=== PATIENT | female | born 1975 | race Hispanic/Latino ===

== ENCOUNTER → 2016-10-17 | Outpatient (CLI) | payer OTHER ==
--- NOTE | 2016-10-17 15:01 | Diagnostic Imaging Report ---
PROCEDURE: US Thyroid. TECHNIQUE: Multiple real-time grayscale images were obtained of the thyroid in various projections. INDICATION: Thyroid enlargement. FINDINGS: The right thyroid lobe measures 4.7 x 2.1 x 1.9 cm. The left lobe is 4.5 x 1.6 x 1.5 cm. There is solid nodule with internal vascularity seen in the inferior aspect of the right lobe measuring 1.2 x 0.8 x 1 cm. The rest of the thyroid parenchyma is heterogenous with no discrete nodule. IMPRESSION: Heterogenous thyroid gland with 1.2 cm nodule in the inferior aspect of the right lobe. This could be related to multinodular goiter with numerous background tiny nodules or thyroiditis resulting in the heterogeneity of the parenchyma. Correlate clinically. Dictated by: Dictated on workstation # [id number]
== END ==
LOC: RAD 10:13
PROVIDERS: ATTEND Nurse Practitioner Family
DX: E04.1 Nontoxic single thyroid nodule (principal)
CPT/HCPCS: 76536

== ENCOUNTER → 2016-10-29 | Outpatient (CLI) | payer OTHER | LOC: CARD 10:09 | PROVIDERS: ATTEND Nurse Practitioner Family | DX: E04.1 Nontoxic single thyroid nodule (principal) ==

== ENCOUNTER → 2016-12-05 | Outpatient (CLI) | payer OTHER ==
--- NOTE | 2016-12-06 10:57 | Diagnostic Imaging Report ---
Thyroid scan and uptake Technique: After the oral administration of 208 ?Ci of I-123 capsule, 4 hour and 24-hour uptake is measured and plantar images over the thyroid gland obtained. Indication: There are nodule is FINDINGS: Thyroid uptake at 4 hours is 28.5 %, and the at 24 hours is 52 %. Planar images demonstrate no slight heterogeneity in the uptake within the upper poles particularly with no discrete cold or hot nodule. IMPRESSION: Hyperthyroidism. Dictated by: Dictated on workstation # [id number]
== END ==
LOC: CARD 10:13
PROVIDERS: ATTEND Nurse Practitioner Family
DX: E04.1 Nontoxic single thyroid nodule (principal)
CPT/HCPCS: 78014

== ENCOUNTER → 2017-05-05 | Outpatient (CLI) | payer OTHER ==
--- NOTE | 2017-05-06 08:23 | Diagnostic Imaging Report ---
PROCEDURE: US Thyroid. TECHNIQUE: Multiple real-time grayscale images were obtained of the thyroid in various projections. INDICATION: Solitary thyroid nodule. COMPARISON: 10/17/2016. FINDINGS: The right thyroid lobe is 4.4 x 2.1 x 1.7 cm. The left lobe is 4.7 x 1.5 x 1.8 cm. There is a solid nodule in the right thyroid lobe near the isthmus with isoechoic to slightly hyperechogenic center and a well defined margin is seen. It measures 1.2 x 0.6 x 1.1 cm. This is similar to the previous exam with no significant change. The background thyroid parenchyma is heterogenous with no other discrete lesions. IMPRESSION: Stable 1.2 cm right thyroid lobe nodule near the isthmus. Stable heterogenous background thyroid parenchyma. Dictated by: Dictated on workstation # [id number]
== END ==
LOC: RAD 09:59
PROVIDERS: ATTEND Nurse Practitioner Family
DX: E04.1 Nontoxic single thyroid nodule (principal)
CPT/HCPCS: 76536

== ENCOUNTER → 2017-07-30 | Outpatient (CLI) | payer OTHER ==
--- NOTE | 2017-07-30 19:46 | Diagnostic Imaging Report ---
Bilateral screening mammogram 2D views with tomosynthesis The current study was also evaluated with a Computer Aided Detection (CAD) system. INDICATION: Screening. No current complaints stated on the questionnaire. COMPARISON: 06/27/2016. FINDINGS: The breasts are composed of heterogeneously dense parenchyma which may decrease mammographic sensitivity. No mass, architectural distortion, or suspicious cluster of calcifications. Allowing for technique and positional differences, no suspicious change is seen. IMPRESSION: Dense breasts with no definite change. ACR BI-RADS Category 2: Benign findings. Result letter will be mailed to the patient. Note: At least 10% of breast cancer is not imaged by mammography. Dictated by: Dictated on workstation # [id number]
== END ==
LOC: RAD 09:26
PROVIDERS: ATTEND Nurse Practitioner Family
DX: Z12.31 Encounter for screening mammogram for malignant neoplasm of breast (principal)
CPT/HCPCS: 77067

== ENCOUNTER → 2018-01-12 | Outpatient (CLI) | payer OTHER ==
--- NOTE | 2018-01-12 11:43 | Diagnostic Imaging Report ---
PROCEDURE: US Thyroid. TECHNIQUE: Multiple real-time grayscale images were obtained of the thyroid in various projections. INDICATION: Thyroid nodule. The study is performed for followup. COMPARISON: Correlation is made with prior thyroid ultrasound from 05/05/2017 and 10/17/2016. FINDINGS: The right lobe of the thyroid measures 5.0 x 1.7 x 1.8 cm and the left lobe measures 4.0 x 1.5 x 1.4 cm. Both lobes are heterogeneous in echotexture. The nodule noted along the medial aspect of the right lobe inferiorly is stable at 10 mm x 7 mm x 12 mm compared with 11 mm x 6 mm x 12 mm on prior. There is a second region of heterogeneity noted in the inferior right lobe of the thyroid measuring approximately 2.0 x 1.3 x 0.7 cm. This also is unchanged when compared with prior thyroid ultrasound. It is uncertain if this is actual thyroid nodule versus heterogeneous thyroid tissue. No discrete mass in the left lobe is identified. IMPRESSION: Overall stable thyroid ultrasound when compared with prior examination from 05/05/2017 and 10/17/2016. Stability over the last 15 months is reassuring. Continued followup with repeat thyroid ultrasound in 6 months is recommended to show continued stability. Dictated by: Dictated on workstation # [id number]
== END ==
LOC: RAD 10:09
PROVIDERS: ATTEND Internal Medicine Endocrinology, Diabetes & Metabolism
DX: E04.1 Nontoxic single thyroid nodule (principal); E03.9 Hypothyroidism, unspecified
CPT/HCPCS: 76536

== ENCOUNTER → 2018-06-12 | Outpatient (CLI) | payer OTHER ==
[~2018-06-12] VITALS: Ht 154.9 cm; Wt 54.9 kg
[~2018-06-12] MED LIST: ACHD5005 PO; LEVO50TA6 PO; LIDOCAINE 1% INJ 20 ML 20 ML VIAL INJ ONE; MECL-133 PO
[2018-06-12 10:35] VITALS: BP 101/59
[2018-06-12 11:05] VITALS: BP 112/60
--- NOTE | 2018-06-12 11:45 | Diagnostic Imaging Report ---
INDICATION: Right lobe thyroid nodule. Patient presents for ultrasound guided fine needle aspiration. PROCEDURE: Patient was brought to the procedure room and placed on the table in the supine position. Ultrasound imaging over the right neck was performed to evaluate appropriate entry site. The right neck was then prepped and draped in usual sterile fashion. A small amount of 1% lidocaine utilized for local anesthesia. A total of three passes were made into the circumscribed hyperechoic nodule in the right lobe of the thyroid utilizing 25-gauge needles. Fine-needle aspiration technique was utilized. Hemostasis was obtained using manual compression. Patient tolerated the procedure well. IMPRESSION: Successful ultrasound guided fine needle aspiration of the hyperechoic nodule right lobe of the thyroid. Pathology results are currently pending. Dictated by: Dictated on workstation # [id number]
== END ==
LOC: RAD 10:11
PROVIDERS: ATTEND Surgery
DX: E04.1 Nontoxic single thyroid nodule (principal)
CPT/HCPCS: 76942

== ENCOUNTER 2018-06-22 05:37 | Outpatient (CLI) | payer OTHER ==
[~2018-06-22] VITALS: Ht 147.3 cm; Wt 55.3 kg
[2018-06-22] MEDS ORDERED: MECL-133 PO (11:38)
[2018-06-22] MEDS ORDERED: LEVO50TA6 PO (12:34)
== END 2018-06-22 12:37 | disposition home or self-care (01) ==
LOC: PREOP 05:37
PROVIDERS: ATTEND Surgery
DX: Z01.818 Encounter for other preprocedural examination (principal)

== ENCOUNTER 2018-06-24 05:58 | Day surgery (SDC) | payer OTHER ==
[~2018-06-24] VITALS: Ht 147.3 cm; Wt 55.3 kg
[~2018-06-24 05:58] MED LIST changes: -ACHD5005 PO; -LIDOCAINE 1% INJ 20 ML 20 ML VIAL INJ ONE
[2018-06-24 06:25] VITALS: BP 97/69
[2018-06-24 06:35] LABS: BASOPHILS % (AUTO) 0 % (0-10); EOSINOPHILS # (AUTO) 0.2 10^3/uL (0.0-0.3); EOSINOPHILS % (AUTO) 3 % (0-10); HEMATOCRIT 37 % (35-52); LYMPHOCYTES # (AUTO) 1.3 X 10^3 (1.0-4.0); LYMPHOCYTES % (AUTO) 21 % (12-44); MEAN CORPUSCULAR HEMOGLOBIN 25 PG (25-34); MEAN CORPUSCULAR HGB CONC 33 G/DL (32-36); MEAN CORPUSCULAR VOLUME 75 FL (80-99); MEAN PLATELET VOLUME 9.4 FL (7.4-10.4); MONOCYTES # (AUTO) 0.6 X 10^3 (0.0-1.0); MONOCYTES % (AUTO) 10 % (0-12); NEUTROPHILS # (AUTO) 4.2 X 10^3 (1.8-7.8); NEUTROPHILS % (AUTO) 66 % (42-75); PLATELET COUNT 261 10^3/uL (130-400); RED CELL DISTRIBUTION WIDTH 15.9 % (10.0-14.5); WHITE BLOOD COUNT 6.3 10^3/uL (4.3-11.0)
[2018-06-24] MEDS ORDERED: ceFAZolin INJECTION 1,000 MG in NS (IVPB) 50 ML IV ONE (06:45)
[2018-06-24] MEDS ORDERED: ceFAZolin 1,000 MG/10 ML (ANCEF) VIAL ONE (06:47)
[2018-06-24] MEDS ORDERED: NS (IVPB) 50 ML ONE (06:47)
[2018-06-24] MEDS: LACTATED RINGERS 1,000 ML IV PRN ×3 (06:49→09:48)
[2018-06-24 06:52] LABS: BUN/CREATININE RATIO 18; CALCIUM 8.9 MG/DL (8.5-10.1); CARBON DIOXIDE 22 MMOL/L (21-32); CHLORIDE 108 MMOL/L (98-107); CREATININE SERUM 0.71 MG/DL (0.60-1.30); GFR ESTIMATED > 60; GLUCOSE 91 MG/DL (70-105); POTASSIUM 3.8 MMOL/L (3.6-5.0); SODIUM 138 MMOL/L (135-145)
[2018-06-24] MEDS ORDERED: MIDAZOLAM 2 MG/2 ML (VERSED) VIAL ONE (07:06)
[2018-06-24] MEDS ORDERED: fentaNYL INJECTION 100 MCG/2 ML AMP ONE ×2 (07:06→08:36)
[2018-06-24] MEDS ORDERED: proPOfol 200 MG/20 ML (DIPRIVAN) VIAL IV ONE (07:15)
[2018-06-24] MEDS ORDERED: BUP/EPI 0.5% 1:200,000 (SENSORCAINE) 30 ML VIAL ONE (07:15)
[2018-06-24] MEDS ORDERED: SEVOFLURANE (ULTANE) 15 ML INHAL SOLN ONE ×9 (07:15→10:02)
[2018-06-24] MEDS ORDERED: LIDOCAINE PF 2% 2 ML (XYLOCAINE) VIAL ONE (07:15)
[2018-06-24] MEDS ORDERED: THROMBIN SPRAY KIT 5,000 UNIT VIAL ONE ×2 (07:15→07:16)
[2018-06-24] MEDS ORDERED: DEXAMETHASONE 10 MG/ML (DECADRON) 1 ML VIAL ONE (07:15)
[2018-06-24] MEDS ORDERED: ONDANSETRON 4 MG/2 ML (SDV) Z0FRAN ONE (07:15)
--- NOTE | 2018-06-24 07:50 | Progress Note-Pre Operative ---
Pre-Operative Progress Note H&P Reviewed The H&P was reviewed, patient examined and no changes noted. Date Seen by Provider: Jun 18, 2018 Time Seen by Provider: 11:00 Date H&P Reviewed: Jun 24, 2018 Time H&P Reviewed: 07:49 Pre-Operative Diagnosis: Right thyroid nodule LIDIA CLARK MD Jun 24, 2018 07:50
[2018-06-24] MEDS ORDERED: PHENYLEPHRINE 100 MCG/ML 10 ML (ANESTHESIA) SYR ONE (08:49)
[2018-06-24] MEDS ORDERED: PROPOFOL INJECTION 50 ML IV ONE (08:49)
[2018-06-24] MEDS ORDERED: SUCCINYLCHOLINE INJ 100 MG/5 ML SYR ONE (09:31)
--- NOTE | 2018-06-24 10:09 | Operative Report ---
Operative Report Date of Procedure/Surgery Jun 24, 2018 Surgeon (s) LIDIA CLARK MD Networking Administrator (s): N/A Post-Operative Diagnosis Same Procedure Performed Right hemithyroidectomy Intraoperative nerve monitoring Description of Procedure Anesthesia Type: General Estimated blood loss (mL): Minimal Specimen(s) collected/removed Right lobe of thyroid and isthmus Description of the Procedure Indication for the procedure: This lady, with a family history of thyroid carcinoma, presented with a 1.2 cm solid right thyroid nodule. FNA was nondiagnostic. Having discussed the options of repeating the FNA in a few months versus thyroidectomy to establish a definitive histologic diagnosis, she chose the latter option. This appeared to be reasonable, mainly in view of her family history. Informed consent was obtained after reviewing the details of the operation and complications of postoperative hematoma, transient hoarseness of voice and the potential for completion thyroidectomy, should carcinoma be found on permanent histological examination. Description of the procedure: She was placed supine on the operative table and general anesthesia induced. A gram of Ancef was administered intravenously as prophylaxis against wound infection. Sequential compression devices were placed around her legs, to minimize the risk of venous thrombosis. Her neck and upper chest were prepared and draped in the usual sterile manner. Preemptive analgesia was established using 0.5 percent Marcaine with epinephrine. A 3 cm transverse incision was made along the skin crease of the neck and platysma incised transversely. Flaps were raised superiorly to the level of the thyroid cartilage and inferiorly to the sternal notch. Cervical fascia was incised vertically and the strap muscles were retracted laterally. The right lobe of the thyroid came into view and the containing multiple nodules. It was retracted medially, displaying a distinct middle thyroid vein. It was controlled with Harmonic scalpel. The superior thyroid artery was then controlled using 2-0 silk sutures, reinforced with a Ligaclip. Both parathyroid glands were found and preserved, along with their blood supply. Branches of the inferior thyroid artery were controlled using ligaclips and minimal use of Harmonic scalpel. Recurrent laryngeal nerve was found in its conventional position and preserved by constant visual inspection along with intermittent nerve stimulation technique. The main trunk of the nerve bifurcated into 2 branches prior to entry into the larynx. Both proximal and distal stimulation confirmed adequate amplitude of the waveform, confirming the intactness of the nerve. The isthmus was then transected using Harmonic scalpel and the tissue sent for frozen section analysis. The pathologist reported follicular features without any distinct evidence of papillary carcinoma. Therefore, it was felt reasonable to conclude the operation. We had the STEEL LOADER conduct Valsalva maneuver, looking for any venous bleeding. There wasn't any. Gelfoam soaked in thrombin solution was placed along the tracheoesophageal-esophageal groove, to optimize hemostasis. Her neck was then flexed in preparation for closure. Cervical fascia was approximated using 3-0 Vicryl and platysma using the same material. Skin was closed using 4-0 Vicryl, in a subcuticular fashion. She tolerated the procedure well, was extubated in the operating room and taken to the recovery room in a stable condition. Findings of the Procedure see op report Allergies and Home Medications Allergies Coded Allergies: No Known Drug Allergies (Unverified , 06/12/18) Home Medications Levothyroxine Sodium 50 Mcg Tablet, 50 MCG PO DAILY, (Reported) Meclizine HCl 25 Mg Tab.chew, 25 MG PO BID PRN for VERTIGO, (Reported) Patient Home Medication List Home Medication List Reviewed: Yes LIDIA CLARK MD Jun 24, 2018 10:09
[2018-06-24] MEDS ORDERED: ACHD5005 PO (10:12)
--- NOTE | 2018-06-24 10:13 | Discharge Inst-Simple/Standard ---
Discharge Inst-Standard Discharge Medications New, Converted or Re-Newed RX: RX on Chart Patient Instructions/Follow Up Plan of Care/Instructions/FU: Dressings off in a.m. Follow-up in 3 weeks. Activity as Tolerated: Yes Discharge Diet: No Restrictions LIDIA CLARK MD Jun 24, 2018 10:12
[2018-06-24] MEDS ORDERED: ONDANSETRON 4 MG/2 ML (SDV) Z0FRAN IVP PRN ×2 (10:15→10:30)
[2018-06-24] MEDS ORDERED: HYDROcodone/APAP 5 MG/325 MG (LORTAB) TAB PO PRN (10:15)
[2018-06-24] MEDS ORDERED: HYDROmorphone 2 MG/ML VIAL (DILAUDID) IV ONE (10:30)
[2018-06-24] MEDS ORDERED: fentaNYL INJECTION 100 MCG/2 ML AMP IVP ONE (10:30)
[2018-06-24 11:45] VITALS: BP_SYST 107; BP_SYST 115; BP_DIAS 68; BP_DIAS 75
[2018-06-24] MEDS: fentaNYL INJECTION 100 MCG/2 ML AMP IVP PRN ×3 (12:05→22:30)
[2018-06-24] MEDS: LACTATED RINGERS 1,000 ML IV SCH (15:01)
[2018-06-24 15:30] VITALS: BP 109/64
[2018-06-24 19:45] VITALS: BP 119/67
[2018-06-24] MEDS ORDERED: FLU QUADRIvalent (5+ YOA) 2018-2019 (AFLURIA) 0.5 ML IM ONE (20:30)
[2018-06-25] VITALS: BP 113/74
[2018-06-25] MEDS: LACTATED RINGERS 1,000 ML IV SCH (00:50)
[2018-06-25] MEDS: fentaNYL INJECTION 100 MCG/2 ML AMP IVP PRN (03:09)
[2018-06-25 03:55] VITALS: BP 104/53
[2018-06-25] MEDS ORDERED: LEVOTHYROXINE 100 MCG (LEVOTHROID) TAB PO NR (06:00)
[2018-06-25 06:35] LABS: BUN/CREATININE RATIO 13; CALCIUM 8.6 MG/DL (8.5-10.1); CARBON DIOXIDE 24 MMOL/L (21-32); CHLORIDE 108 MMOL/L (98-107); CREATININE SERUM 0.67 MG/DL (0.60-1.30); GFR ESTIMATED > 60; GLUCOSE 97 MG/DL (70-105); POTASSIUM 3.6 MMOL/L (3.6-5.0); SODIUM 140 MMOL/L (135-145)
--- NOTE | 2018-06-25 06:59 | Anesthesia-General Post-Op ---
General Patient Condition Mental Status/LOC: Same as Preop Cardiovascular: Satisfactory Nausea/Vomiting: Absent Respiratory: Satisfactory Pain: Controlled Complications: Absent Post Op Complications Complications None Follow Up Care/Instructions Patient Instructions None needed. Anesthesia/Patient Condition Patient Condition Patient is doing well, no complaints, stable vital signs, no apparent adverse anesthesia problems. No complications reported per nursing. JENNIFER LAWTON CRNA Jun 25, 2018 06:59
[2018-06-25 08:38] VITALS: BP 98/56
--- NOTE | 2018-06-25 10:14 | Progress Note-Standard ---
Standard Progress Note Progress Notes/Assess & Plan Date Seen by a Provider: Jun 25, 2018 Time Seen by a Provider: 10:13 Progress/Assessment & Plan Doing well. Vocal cord function intact. Home Final Diagnosis Right thyroid nodule LIDIA CLARK MD Jun 25, 2018 10:14
== END 2018-06-25 11:43 | disposition home or self-care (01) ==
LOC: SDC 05:58 → 4TH 11:44 → SDC 06-25 11:43
PROVIDERS: ATTEND Surgery
DX: E04.1 Nontoxic single thyroid nodule (principal); Z80.8 Family history of malignant neoplasm of other organs or systems; Z11.2 Encounter for screening for other bacterial diseases; Z79.899 Other long term (current) drug therapy
CPT/HCPCS: 36415; 80048; 84703; 85025; 87081

== ENCOUNTER → 2018-07-27 | Outpatient (CLI) | payer OTHER ==
[~2018-07-27] MED LIST changes: +ACHD5005 PO
== END ==
LOC: LAB 07:38
PROVIDERS: ATTEND Surgery
DX: R53.83 Other fatigue (principal); Z98.890 Other specified postprocedural states
CPT/HCPCS: 36415; 84436; 84443

== ENCOUNTER → 2018-07-29 | Outpatient (CLI) | payer OTHER ==
--- NOTE | 2018-07-29 19:29 | Diagnostic Imaging Report ---
INDICATION: Routine screening. Comparison is made with prior mammograms from 07/30/2017 and 06/27/2016. 2-D and 3-D bilateral screening mammography was performed with computer-aided detection (CAD) system. FINDINGS: Both breasts are heterogeneously dense, limiting the sensitivity of mammography. The parenchymal pattern is stable. No mass or malignant-appearing microcalcifications are seen. The axillae are unremarkable. IMPRESSION: No mammographic features suspicious for malignancy are identified. ACR BI-RADS Category 1: Negative. Result letter will be mailed to the patient. Note: At least 10% of breast cancer is not imaged by mammography. Dictated by: Dictated on workstation # [id number]
== END ==
LOC: RAD 09:03
PROVIDERS: ATTEND Nurse Practitioner Family
DX: Z12.31 Encounter for screening mammogram for malignant neoplasm of breast (principal)
CPT/HCPCS: 77067

== ENCOUNTER → 2019-02-01 | Outpatient (CLI) | payer OTHER ==
--- NOTE | 2019-02-01 16:54 | Diagnostic Imaging Report ---
INDICATION: Right breast lump. TECHNIQUE: Multiple Real-time grayscale images were obtained over the right breast in various projections. FINDINGS: There is no evidence of a discrete solid or cystic mass in the right breast. IMPRESSION: Negative right breast ultrasound. Dictated by: Dictated on workstation # [id number]
--- NOTE | 2019-02-01 16:56 | Diagnostic Imaging Report ---
INDICATION: Palpable abnormality. COMPARISON: 07/29/2018, 07/30/2017, and 06/27/2016. TECHNIQUE: Digital diagnostic mammography was performed of the right breast with a Computer Aided Detection (CAD) system. FINDINGS: The fibroglandular tissue in the right breast is heterogeneously dense. There is no dominant mass, spiculated lesion, or suspicious calcification identified. The skin, nipples, and axillae are unremarkable. Ultrasound over the palpable area in the right breast was also performed which was negative. IMPRESSION: The patient should return in July 2019 for bilateral screening mammography. ACR BI-RADS Category 2: Benign findings. Result letter will be mailed to the patient. Note: At least 10% of breast cancer is not imaged by mammography. Dictated by: Dictated on workstation # [id number]
== END ==
LOC: RAD 13:18
PROVIDERS: ATTEND Nurse Practitioner Primary Care
DX: N63.10 Unspecified lump in the right breast, unspecified quadrant (principal)

== ENCOUNTER → 2021-05-01 | Outpatient (CLI) | payer OTHER ==
--- NOTE | 2021-05-01 13:18 | Diagnostic Imaging Report ---
INDICATION: Routine screening. Comparison is made with prior mammogram from 07/29/2018 and 07/30/2017. 2-D and 3-D bilateral screening mammography was performed with CAD. Both breasts are heterogeneously dense, limiting the sensitivity of mammography. The overall parenchymal pattern is stable. No mass or malignant-appearing microcalcifications are seen. Axillae are unremarkable. IMPRESSION: BI-RADS Category 1 No mammographic features suspicious for malignancy are identified. ACR BI-RADS Category 1: Negative. Result letter will be mailed to the patient. Note: At least 10% of breast cancer is not imaged by mammography. Dictated by: Dictated on workstation # [id number]
== END ==
LOC: RAD 11:15
PROVIDERS: ATTEND Nurse Practitioner
DX: Z12.31 Encounter for screening mammogram for malignant neoplasm of breast (principal)
CPT/HCPCS: 77063; 77067

== ENCOUNTER 2021-11-27 08:51 | Day surgery (SDC) | payer BC ==
[~2021-11-27] VITALS: Ht 162.6 cm; Wt 60.0 kg
[2021-11-27] VITALS (11 sets, daily range): BP systolic 76–115; BP diastolic 41–72
[2021-11-27] MEDS ORDERED: ceFAZolin 2 GM IV Premixed 50 ML IV ONE (09:00)
[2021-11-27 09:18] LABS: CLARITY,URINE SL CLOUDY; COLOR,URINE YELLOW; GLUCOSE, URINE (UA) NEGATIVE (NEGATIVE); KETONES,URINE NEGATIVE (NEGATIVE); LEUKOCYTE ESTERASE ,URINE NEGATIVE (NEGATIVE); NITRITE,URINE NEGATIVE (NEGATIVE); PROTEIN,URINE 1+ (NEGATIVE)
[2021-11-27] MEDS: LACTATED RINGERS 1,000 ML IV PRN ×3 (09:30→13:30)
[2021-11-27 09:34] LABS: BASOPHILS % (AUTO) 1 % (0-10); EOSINOPHILS # (AUTO) 0.1 10^3/uL (0.0-0.3); EOSINOPHILS % (AUTO) 1 % (0-10); HEMATOCRIT 45 % (35-52); HEMOGLOBIN 14.9 g/dL (11.5-16.0); LYMPHOCYTES % (AUTO) 15 % (12-44); MEAN CORPUSCULAR HEMOGLOBIN 26 pg (25-34); MEAN CORPUSCULAR HGB CONC 33 g/dL (32-36); MEAN CORPUSCULAR VOLUME 79 fL (80-99); MEAN PLATELET VOLUME 9.8 fL (9.0-12.2); MONOCYTES # (AUTO) 0.4 10^3/uL (0.0-1.0); MONOCYTES % (AUTO) 6 % (0-12); NEUTROPHILS # (AUTO) 5.3 10^3/uL (1.8-7.8); NEUTROPHILS % (AUTO) 77 % (42-75); PLATELET COUNT 262 10^3/uL (130-400); WHITE BLOOD COUNT 6.9 10^3/uL (4.3-11.0)
[2021-11-27 09:36] LABS: BACTERIA,URINE TRACE /HPF; BILIRUBIN,URINE 1+ (NEGATIVE); WBC,URINE RARE /HPF
[2021-11-27] MEDS ORDERED: OMEP20TA7 PO (10:02)
[2021-11-27] MEDS ORDERED: ESTRADIOL VAGINAL CREAM 42.5 GM (ESTRACE) VG ONE (10:17)
[2021-11-27] MEDS ORDERED: VASOPRESSIN INJECTION 20 UNIT/ML VIAL ONE (10:18)
[2021-11-27] MEDS ORDERED: LIDOCAINE/EPI 1%-1:200,000 (XYLOCAINE) 30 ML VIAL ONE (10:18)
[2021-11-27] MEDS ORDERED: NS (IVPB) 100 ML ONE (10:18)
--- NOTE | 2021-11-27 10:25 | Progress Note-Pre Operative ---
Pre-Operative Progress Note H&P Reviewed The H&P was reviewed, patient examined and no changes noted. Date Seen by Provider: Nov 27, 2021 Time Seen by Provider: 10:00 Date H&P Reviewed: Nov 27, 2021 Time H&P Reviewed: 10:00 Pre-Operative Diagnosis: incomplete UV prolapse, cystocele, rectocele, stress incontinence, JESUS SAHU DO Nov 27, 2021 10:25
[2021-11-27] MEDS ORDERED: LIDOCAINE PF 2% 5 ML (XYLOCAINE) VIAL ONE (10:34)
[2021-11-27] MEDS ORDERED: SEVOFLURANE (ULTANE) 15 ML INHAL SOLN ONE ×2 (10:34→13:34)
[2021-11-27] MEDS ORDERED: ROCURONIUM 10 MG/ML 5 ML SYRINGE IV ONE (10:34)
[2021-11-27] MEDS ORDERED: ONDANSETRON 4 MG/2 ML (SDV) Z0FRAN ONE (10:34)
[2021-11-27] MEDS ORDERED: MIDAZOLAM 2 MG/2 ML (VERSED) VIAL ONE (10:34)
[2021-11-27] MEDS ORDERED: proPOfol 200 MG/20 ML (DIPRIVAN) VIAL IV ONE (10:34)
[2021-11-27] MEDS ORDERED: fentaNYL INJ 100 MCG/2 ML AMP ONE (10:34)
[2021-11-27] MEDS ORDERED: PHENYLEPHRINE 100 MCG/ML 10 ML (ANESTHESIA) SYR ONE (11:39)
[2021-11-27] MEDS ORDERED: HYDROmorphone 2 MG/ML VIAL (DILAUDID) ONE (13:29)
--- NOTE | 2021-11-27 13:41 | Operative Report ---
Operative Report Date of Procedure/Surgery Nov 27, 2021 Surgeon (s) JESUS NARANJO DO Railroad Wheels And Axles Inspector (s): NA Post-Operative Diagnosis abnormal uterine bleeding incomplete uterovaginal prolapse stress incontinence rectocele Procedure Performed RaTH, bilateral salpingectomy posterior colporrhaphy Desara Pubovaginal sling Description of Procedure Anesthesia Type: General Estimated blood loss (mL): 200 Specimen(s) collected/removed uterus and bilateral tubes Description of the Procedure After informed consent was obtained, patient was taken into the operating room where general anesthetic was found to be adequate. She was prepped and draped in the usual sterile fashion in the dorsal lithotomy position. A Bobo catheter was placed. A speculum was placed in the vagina. The cervix was visualized and the anterior lip was grasped with a sharp toothed tenaculum. I prolapsed to the introitus. The uterus was sounded and depth was approximately 8 centimeters. I placed the Rebecca device (8 cm) and a 3.5 cm collar was advanced over the cervix. I inserted the Rebecca without difficulty, inflating the balloon and securing it around the fornix of the cervix. The collar was then secured w ith sutures at 12 o'clock. Attention was then turned to the patient's abdomen. The skin was injected with 0.25% Marcaine. A supraumbilical incision was made about 8 mm in length. A Veress needle was inserted and I confirmed intraabdominal placement with a drop in pressure and the saline drop test. The opening pressure was 7 mmHg. I then insufflated the abdomen to a maximum of 15 mmHg with warmed CO2 gas. I placed an additional 8 mm trocar approximately 15 cm lateral to the umbilicus on the left and another on the right. These were placed under direct visualization of the laparoscope. When all placements were confirmed, the patient was placed in steep Trendelenburg allowing adequate visualization. At this point, it was determined that the procedure could be performed robotically and the robot was brought in for docking. The docking was accomplished without difficulty. I then took over the command of the robot utilizing the synchroseal and monopolar concepcion. The patient had previously had a tubal ligation, but still had partial tubes bilaterally with hydrosalpinges. The ovaries were also noted to be adherent to the posterior uterus in the ovarian fossa. I dissected these off the ovarian fossa with assistance of the concepcion. I then performed a salp ingectomy bilaterally by incising the mesosalpinx with the concepcion. I then was able to visualize the round ligaments bilaterally, grasped and then cauterized with bipolar cautery and then cut with my concepcion. I then grasped the uterine ovarian ligaments separately bilaterally and cauterized and cut with the synchroseal. Then moved my dissection to the posterior leaves of the broad ligament. I dissected the posterior leaves of the broad ligament off the uterine arteries skeletonizing them bilaterally. I then took a second clamp with the synchroseal and with the concepcion, transected the vessels away from the lateral aspect to the cervical stroma. I dissected the anterior peritoneum off the lower uterine segment. I continually pushed the bladder back and I took excessively great care and I was eventually able to dissect the vesicouterine peritoneum off the lower uterine segment. I then dissected in a V fashion towards the midline between the uterosacral ligaments. This allowed me to skeletonize the uterine vessels bilaterally. The balloon on the REBECCA was insufflated. This allowed me to see the REBECCA circumferentially. I then performed a colpotomy anteriorly and then amputate with cervix away from the vaginal fornix. I then continued the colpotomy circumferentially. The uterus was removed through the vagina. The funeral assistant left a sponge in the vagina to keep the pneumoperitoneum. I then began closure of the vaginal cuff. I closed the apices of the vaginal cuff with 2-0 Vicryl V lock sutures with a colposuspension through the uterosacral ligaments. This suspended the apices of the vaginal cuff. I extended this to the midline from both sides and overlapped the V lock sutures in the midline. Excellent closure is noted and hemostasis is achieved. All the needles were removed from the patient's abdomen. The robot was then undocked and brought back to laparoscopy. The ports were removed from the abdomen under direct visualization. The incisions were closed with 4-0 Monocryl and then Skin Affix was placed. Bandages were placed. Attention was now turned to the vagina. The previously noted 2+ cystocele was now reduced, so I turned the attention to the posterior vaginal wall. The perineum was grasped on either side of the midline with mariza clamps and I injected the posterior vaginal epithelium with dilute vasopressin and then made a midline skin incision. I then dissected the posterior vaginal epithelium off of the puborectal fascia laterally. Once this was complete, I plicated the posterior fascia in the midline with interrupted figure of eight stitches of 2-0 Vicryl. I then excised the excess vaginal epithelium with concepcion. And then reapproximated the vaginal epithelium with a running 2-0 Vicryl. I then made a 1 cm incision approximately 1.5 cm distal to the urethral meatus and then injected vasopressin bilaterally. I then dissected out to the obturator space bilaterally. I then proceeded to place the Desara pubovaginal sling in the standard fashion bilaterally through the obturator membrane. After the second side was placed, I ensured the the sling was lying flat and was not twisted or too tight. I then did a cystoscopy and there was no abnormal pathology and no mesh in the bladder. I removed the cystoscope ensuring that the sling was lying in the midurethra. I then performed a Crede on the bladder with minimal leakage noted. The instruments were now removed and the anterior vaginal incision was repaired with 4-0 Monocryl in a running fashion. Estrogen cream and vaginal packing was then placed in the vagina. The patient was now awakened and taken to the recovery room in stable condition. Sponge, lap, needle and instrument counts were correct times two. Findings of the Procedure retroverted boggy uterus evidence of tubal interruption, bilateral hydrosalpinges 2+ cystocele, reduced after hysterectomy 2-3 + rectocele ovaries adherent to posterior uterus normal appearing ovaries paratubal cysts current menses Allergies and Home Medications Allergies Coded Allergies: No Known Drug Allergies (Unverified , 06/12/18) Patient Home Medication List Home Medication List Reviewed: Yes Acetaminophen (Acetaminophen) 500 Mg Tablet, 1,000 MG PO Q8HR Prescribed by: JESUS NARANJO on 11/27/21 173 Docusate Sodium (Docusate Sodium) 100 Mg Capsule, 100 MG PO BID Prescribed by: JESUS NARANJO on 11/27/21 173 Ibuprofen (Ibu) 600 Mg Tablet, 600 MG PO Q6H Prescribed by: JESUS NARANJO on 11/27/211731 Levothyroxine Sodium (Levothyroxine Sodium) 50 Mcg Tablet, 50 MCG PO DAILY, (Reported) Entered as Reported by: MONSTER CRUZ on 06/22/18 1234 Last Action: Reviewed Omeprazole (Omeprazole) 20 Mg Tablet.dr, 20 MG PO DAILY, (Reported) Entered as Reported by: GWENDOLYN LANCASTER on 11/27/21 1002 Last Action: Reviewed Simethicone (Gas-X) 125 Mg Tab.chew, 125 MG PO Q2H Prescribed by: JESUS NARANJO on 11/27/21 070 JESUS NARANJO DO Nov 27, 2021 13:41
[2021-11-27] MEDS ORDERED: CHLORASEPTIC LOZENGE MM PRN (13:45)
[2021-11-27] MEDS ORDERED: SIMETHICONE 40 MG/0.6 ML (MYLICON DROPS) 30 ML BTL PO PRN (13:45)
[2021-11-27] MEDS ORDERED: LACTATED RINGERS 1,000 ML IV SCH (13:45)
[2021-11-27] MEDS ORDERED: morphine INJ 4 MG/ML 1 ML (VIAL/SYRINGE) IV PRN (13:45)
[2021-11-27] MEDS ORDERED: NALOXONE 0.4 MG/ML 1 ML (NARCAN) VIAL IV PRN (13:45)
[2021-11-27] MEDS ORDERED: HYDROmorphone 2 MG/ML VIAL (DILAUDID) IV ONE (14:15)
[2021-11-27] MEDS ORDERED: morphine INJ 10 MG/ML 1ML (SYR OR VIAL) IVP ONE (14:15)
[2021-11-27] MEDS ORDERED: ONDANSETRON 4 MG/2 ML (SDV) Z0FRAN IVP PRN (14:15)
[2021-11-27] MEDS ORDERED: KETOROLAC 30 MG/ML VIAL ONE (14:23)
[2021-11-27] MEDS ORDERED: morphine INJ 10 MG/ML 1ML (SYR OR VIAL) ONE (14:30)
--- NOTE | 2021-11-27 14:42 | Anesthesia-General Post-Op ---
General Patient Condition Mental Status/LOC: Same as Preop Cardiovascular: Satisfactory Nausea/Vomiting: Absent Respiratory: Satisfactory Pain: Controlled Complications: Absent Post Op Complications Complications None Follow Up Care/Instructions Patient Instructions None needed. Anesthesia/Patient Condition Patient Condition Patient is doing well, no complaints, stable vital signs, no apparent adverse anesthesia problems. JOE RESTREPO DO Nov 27, 2021 14:42
[2021-11-27] MEDS: ACETAMINOPHEN 500 MG TAB (TYLENOL) PO SCH (17:05)
[2021-11-27] MEDS: IBUPROFEN 600 MG (MOTRIN) TAB PO SCH (17:05)
[2021-11-27] MEDS ORDERED: DOCU100C37 PO (17:32)
[2021-11-27] MEDS ORDERED: SIME125T PO (17:32)
[2021-11-27] MEDS ORDERED: IBUP-844 PO (17:32)
[2021-11-27] MEDS ORDERED: ACET-93 PO (17:32)
--- NOTE | 2021-11-27 17:59 | Discharge Inst-Women's Service ---
Discharge Inst-Women's Serv Depart Medication/Instructions New, Converted or Re-Newed RX: Transmitted to Pharmacy (oxycodone previously transmitted) Instructions nothing in the vagina for 10-12 weeks no lifting over 25 lbs for 4 weeks no driving for 1 week start using estrogen vaginal cream in 2 weeks 1/2 gram vaginally at night 2-3 times per week (ask for applicator at your post op visit) would be beneficial to continue this for lifetime Final Diagnosis incomplete uterovaginal prolapse rectocele stress incontinence abnormal uterine bleeding Problems Reviewed?: Yes Consults/Follow Up Additional Follow Up: Yes (1 week for incision check, schedule follow up with me on 01/02/2022) Activity Activity: Activity as Tolerated Driving Instructions: No Driving for 1 Week NO SMOKING: NO SMOKING Nothing Inside Vagina: No Douching, No Sweetser, No Tampons Diet Discharge Diet: No Restrictions Symptoms to Report to : Swelling Increased, Bleeding Excessive, Pain Increased, Fever Over 101 Degrees F, Vaginal Bleeding Increase, Cramps in Feet or Legs, Vaginal Discharge Foul For Any Problems or Questions: Contact Your Physician Skin/Wound Care Infection Signs and Symptoms: Increased Redness, Foul Odor of Wound, Increased Drainage, Skin Itchy or Has a Rash, Increased Swelling, Temperature Above 101 F Operative Area Clean and Dry: You May Remove Bandage (in 3 days or if soiled or wet) Stitches/Viktoria/Dermabond: Dermabond Bathing Instructions: JESUS Ayala DO Nov 27, 2021 17:40
[2021-11-27] MEDS: LACTATED RINGERS 1,000 ML IV SCH (18:51)
[2021-11-27] MEDS: DOCUSATE SODIUM 100 MG (COLACE) CAP PO SCH (20:28)
[2021-11-28 00:47] VITALS: BP 86/51
[2021-11-28] MEDS: ACETAMINOPHEN 500 MG TAB (TYLENOL) PO SCH ×2 (00:47→08:29)
[2021-11-28] MEDS: IBUPROFEN 600 MG (MOTRIN) TAB PO SCH ×2 (00:47→06:35)
[2021-11-28] MEDS: LACTATED RINGERS 1,000 ML IV SCH (02:45)
[2021-11-28 04:45] VITALS: BP 90/54
--- NOTE | 2021-11-28 08:12 | Progress Note ---
Standard Progress Note Progress Notes/Assess & Plan Date Seen by a Provider: Nov 28, 2021 Time Seen by a Provider: 08:05 Progress/Assessment & Plan Interval History: No acute events overnight. Subjective Patient seen at the bedside. She is doing well with no issues. Her pain is well controlled with oral pain medications. She is ambulating in the room. Passing flatus. Bobo was removed and still awaiting spontaneous void. Tolerating po intake. Denies fever, chills, N/V and SOB. Objective: Vitals reviewed. Please see below. Physical Examination: General: No acute distress. Cardiology: Regular rate and rhythm. Pulmonary: No respiratory distress. Clear to ausculation bilaterally. On RA. Abdomen: Soft. Appropriately tender to palpation. Non-distended. Hypoactive bow el sounds. Incision: 3 trocar incisions that are clean/dry/intact. No drainage noted. Extremities: No edema, SCDs in place ASSESSMENT: This is a 46 yo female, POD#1 s/p RATLH,BS and posterior repair with Dr. Begum. No acute events, awaiting spontaneous void prior to discharge. Plan: * Afebrile, vital signs stable * GI: regular diet as tolerated * : UOP was adequate overnight. Awaiting spontaneous void this morning. * Heme: preop hgb 14.9 to postop pending AM labs. Vitals stable. No signs or symptoms of anemia * Pain controlled with oral pain medications. * DVT prophylaxis: SCDs, ambulation. IC usage encouraged. * Dispo: Anticipate discharge today. Discharge instructions reviewed. Plans for follow-up in 6 weeks. Final Diagnosis Postoperative exam Diagnosis/Problems Diagnosis/Problems (1) Incomplete uterovaginal prolapse (2) Rectocele (3) Cystocele (4) Abnormal uterine bleeding (AUB) (5) Stress incontinence IBAN HAMILTON MD Nov 28, 2021 08:12
[2021-11-28] MEDS: DOCUSATE SODIUM 100 MG (COLACE) CAP PO SCH (08:29)
[2021-11-28 08:30] VITALS: BP 106/62
[2021-11-28 08:42] LABS: BASOPHILS % (AUTO) 0 % (0-10); EOSINOPHILS % (AUTO) 0 % (0-10); HEMATOCRIT 36 % (35-52); HEMOGLOBIN 11.6 g/dL (11.5-16.0); LYMPHOCYTES # (AUTO) 1.2 10^3/uL (1.0-4.0); LYMPHOCYTES % (AUTO) 16 % (12-44); MEAN CORPUSCULAR HEMOGLOBIN 26 pg (25-34); MEAN CORPUSCULAR HGB CONC 32 g/dL (32-36); MEAN CORPUSCULAR VOLUME 80 fL (80-99); MEAN PLATELET VOLUME 10.3 fL (9.0-12.2); MONOCYTES # (AUTO) 0.6 10^3/uL (0.0-1.0); MONOCYTES % (AUTO) 7 % (0-12); NEUTROPHILS % (AUTO) 76 % (42-75); PLATELET COUNT 194 10^3/uL (130-400); WHITE BLOOD COUNT 7.9 10^3/uL (4.3-11.0)
[2021-11-28 11:35] VITALS: BP 106/62
[2021-11-28] MEDS ORDERED: SIMETHICONE 80 MG (MYLICON) CHEW PO PRN (17:00)
== END 2021-11-28 11:35 | disposition home or self-care (01) ==
LOC: SDC 08:51 → WS 14:08 → SDC 11-28 11:35
PROVIDERS: ATTEND Obstetrics & Gynecology
DX: N80.0 Endometriosis of uterus (principal); N70.11 Chronic salpingitis; N83.8 Other noninflammatory disorders of ovary, fallopian tube and broad ligament; N81.2 Incomplete uterovaginal prolapse; D64.9 Anemia, unspecified; N39.3 Stress incontinence (female) (male); Z98.51 Tubal ligation status; Z80.41 Family history of malignant neoplasm of ovary; Z98.890 Other specified postprocedural states
CPT/HCPCS: 57250; 57288; 58571; 81000; 84703; 85025 ×2; 86850; 86900; 86901; 87081; 88305; 88307; 94664; C1771; 36415

== ENCOUNTER 2022-01-03 09:19 | Outpatient (CLI) | payer BC ==
[~2022-01-03] VITALS: Ht 147 cm; Wt 63.0 kg
[~2022-01-03 09:19] MED LIST changes: +ACET-93 PO; +DOCU100C37 PO; +IBUP-844 PO; +OMEP20TA7 PO; +SIME125T PO
== END 2022-01-03 09:55 | disposition home or self-care (01) ==
LOC: PREOP 09:19
PROVIDERS: ATTEND Obstetrics & Gynecology
DX: Z01.818 Encounter for other preprocedural examination (principal)

== ENCOUNTER 2022-01-04 05:52 | Day surgery (SDC) | payer BC ==
[2022-01-04] VITALS (9 sets, daily range): BP systolic 90–109; BP diastolic 48–73
[~2022-01-04] VITALS: Ht 147 cm; Wt 63.0 kg
[2022-01-04] MEDS ORDERED: ceFAZolin INJECTION 1,000 MG VIAL IV ONE (06:15)
[2022-01-04] MEDS ORDERED: LACTATED RINGERS 1,000 ML IV PRN (06:15)
[2022-01-04] MEDS ORDERED: LIDOCAINE PF 2% 5 ML (XYLOCAINE) VIAL ONE (07:19)
[2022-01-04] MEDS ORDERED: fentaNYL INJ 100 MCG/2 ML AMP ONE (07:19)
[2022-01-04] MEDS ORDERED: MIDAZOLAM 2 MG/2 ML (VERSED) VIAL ONE (07:19)
[2022-01-04] MEDS ORDERED: proPOfol 200 MG/20 ML (DIPRIVAN) VIAL IV ONE (07:19)
[2022-01-04] MEDS ORDERED: LIDOCAINE/EPI 2% 1:200,00 (XYLOCAINE) 20 ML VIAL ONE (07:20)
--- NOTE | 2022-01-04 07:24 | Progress Note-Pre Operative ---
Pre-Operative Progress Note H&P Reviewed The H&P was reviewed, patient examined and no changes noted. Date Seen by Provider: Jan 04, 2022 Time Seen by Provider: 07:15 Date H&P Reviewed: Jan 04, 2022 Time H&P Reviewed: 07:15 Pre-Operative Diagnosis: mesh exposure, post operative bleeding JESUS NARANJO DO Jan 04, 2022 07:24
[2022-01-04] MEDS ORDERED: NS (IVPB) 100 ML ONE (07:36)
[2022-01-04] MEDS ORDERED: VASOPRESSIN INJECTION 20 UNIT/ML VIAL ONE (07:36)
[2022-01-04] MEDS ORDERED: ONDANSETRON 4 MG/2 ML (SDV) Z0FRAN ONE (07:36)
[2022-01-04] MEDS ORDERED: D5 LR IV SOLUTION 1,000 ML IV SCH (08:15)
[2022-01-04] MEDS ORDERED: KETOROLAC 30 MG/ML VIAL IVP ONE (08:15)
[2022-01-04] MEDS ORDERED: ONDANSETRON 4 MG/2 ML (SDV) Z0FRAN IVP PRN (08:15)
[2022-01-04] MEDS ORDERED: SEVOFLURANE (ULTANE) 15 ML INHAL SOLN ONE (08:16)
--- NOTE | 2022-01-04 08:21 | Operative Report ---
Operative Report Date of Procedure/Surgery Jan 04, 2022 Surgeon (s) JESUS NARANJO DO Fermentologist (s): NA Post-Operative Diagnosis exposed surgical mesh granulation tissue Procedure Performed Exam under anesthesia Excision of exposed mesh Chemical cautery of granulation tissue Description of Procedure Anesthesia Type: General Estimated blood loss (mL): minimal to none Specimen(s) collected/removed 2 mm mesh removed, not sent for pathology Description of the Procedure With informed consent the patient was taken to the operating room where general anesthetic was found to be adequate. She was then prepped and draped in the usual sterile fashion in the dorsolithotomy position. A straight cath was used to drain the bladder of approximately 50 mL of clear yellow urine. Exam under anesthesia was then done. The suture that had been removed from the perineum was gone and the granulation tissue that was seen in the office was go ne. A weighted speculum was placed in the vagina. I was then able to visualize the area where the sling had been placed. There was a small area of mesh that was seen in the left para urethral sulcus. It appeared that there was a buttonhole from the time of surgery. I injected the area with 1% lidocaine with epinephrine. And then grasped the mesh with an Allis clamp and excised it with Metzenbaum scissors. Where the buttonhole had occurred, I incised the epithelium. And then resultant defect with running stitch of 4-0 Monocryl. There was no further exposure of mesh in any location. The vaginal cuff was noted to be intact with sutures still intact, which is expected as she is only 6-week postop. But there was a small amount of granulation tissue, about 0.2 mm, in the center of the vaginal cuff and this was treated with silver nitrate. The posterior vaginal incision was healed and sutures were resorbed, but there was a tiny amount of granulation tissue at the apex of this incision as well. And this was treated with silver nitrate. The vagina was then irrigated. There was no active bleeding noted. She was then awakened and taken to the recovery room in stable condition. Sponge, needle, and instrument count correct x2. Findings of the Procedure vaginal cuff intact with a small amount of granulation tissue posterior vaginal wall intact and sutures are resorbed, but tiny amount of granulation tissue at the distal apex 2 mm of exposed mesh on the left paravaginal side at the sulcus, button hole from surgery Allergies and Home Medications Allergies Coded Allergies: No Known Drug Allergies (Unverified , 06/12/18) Patient Home Medication List Home Medication List Reviewed: Yes Levothyroxine Sodium (Levothyroxine Sodium) 50 Mcg Tablet, 50 MCG PO DAILY, (Reported) Entered as Reported by: MONSTER CRUZ on 06/22/18 1234 Discontinued Medications Acetaminophen (Acetaminophen) 500 Mg Tablet, 1,000 MG PO Q8HR Discontinued Reason: No Longer Taking Prescribed by: JESUS NARANJO on 11/27/21 173 Docusate Sodium (Docusate Sodium) 100 Mg Capsule, 100 MG PO BID Discontinued Reason: No Longer Taking Prescribed by: JESUS NARANJO on 11/27/21 173 Ibuprofen (Ibu) 600 Mg Tablet, 600 MG PO Q6H Discontinued Reason: No Longer Taking Prescribed by: JESUS NARANJO on 11/27/21 173 Omeprazole (Omeprazole) 20 Mg Tablet.dr, 20 MG PO DAILY, (Reported) Discontinued Reason: No Longer Taking Entered as Reported by: GWENDOLYN LANCASTER on 11/27/21 1002 Simethicone (Gas-X) 125 Mg Tab.chew, 125 MG PO Q2H Discontinued Reason: No Longer Taking Prescribed by: JESUS NARANJO on 11/27/211731 JESUS NARANJO DO Jan 04, 2022 08:21
[2022-01-04] MEDS ORDERED: KETOROLAC 30 MG/ML VIAL ONE (08:22)
--- NOTE | 2022-01-04 08:26 | Discharge Inst-Women's Service ---
Discharge Inst-Women's Serv Depart Medication/Instructions New, Converted or Re-Newed RX: Other (Patient has medications at home from previous surgery. May use iboprofen 600 mg every 6 hours as needed. Acetomi nophen (tylenol) 500 mg po q 6 hrs as needed. And oxycodone 5 mg po q 6 hrs as needed.) Instructions nothing in the vagina for 4-6 weeks (until cleared by Dr. Newell) Final Diagnosis granulation tissue of vaginal incision exposure of periurethral mesh Problems Reviewed?: Yes Consults/Follow Up Additional Follow Up: Yes (4 weeks) Activity Activity: Activity as Tolerated Driving Instructions: No Driving for 24 Hours NO SMOKING: NO SMOKING Nothing Inside Vagina: No Douching, No Western, No Tampons Diet Discharge Diet: No Restrictions Symptoms to Report to : Swelling Increased, Bleeding Excessive, Pain Increased, Fever Over 101 Degrees F, Vaginal Bleeding Increase, Cramps in Feet or Legs, Vaginal Discharge Foul For Any Problems or Questions: Contact Your Physician Skin/Wound Care Bathing Instructions: JESUS Ayala DO Jan 04, 2022 08:26
== END 2022-01-04 10:10 | disposition home or self-care (01) ==
LOC: SDC 05:52
PROVIDERS: ATTEND Obstetrics & Gynecology
DX: T83.9XXA Unspecified complication of genitourinary prosthetic device, implant and graft, initial encounter (principal); Z48.89 Encounter for other specified surgical aftercare
CPT/HCPCS: 84703; 87081

== ENCOUNTER → 2022-01-23 | Outpatient (CLI) | payer BC | LOC: LABNPT 14:20 | PROVIDERS: ATTEND Obstetrics & Gynecology | DX: N76.0 Acute vaginitis (principal) | CPT/HCPCS: 87070; 87205 ==

== ENCOUNTER 2023-03-26 05:33 | Outpatient (CLI) | payer BC ==
[~2023-03-26] VITALS: Ht 147.3 cm; Wt 66.4 kg
[~2023-03-26 05:33] MED LIST changes: +OMEP20TA56 PO; -OMEP20TA7 PO
== END 2023-03-26 09:45 | disposition home or self-care (01) ==
LOC: PREOP 05:33
PROVIDERS: ATTEND Surgery
DX: Z01.818 Encounter for other preprocedural examination (principal)

== ENCOUNTER 2023-04-03 10:53 | Day surgery (SDC) | payer BC ==
[~2023-04-03] VITALS: Ht 147 cm; Wt 66.4 kg
[2023-04-03] MEDS ORDERED: LACTATED RINGERS 1,000 ML IV STA (10:56)
[2023-04-03] MEDS ORDERED: HURRICAINE EXT TUBE (BENZOCAINE) XX PRN (11:00)
[2023-04-03 11:15] VITALS: BP 112/76
[2023-04-03] MEDS ORDERED: LACTATED RINGERS 1,000 ML IV ONE (13:03)
[2023-04-03] MEDS ORDERED: PROPOFOL INJECTION 50 ML IV ONE (13:46)
[2023-04-03] MEDS ORDERED: MIDAZOLAM 2 MG/2 ML (VERSED) VIAL ONE (13:46)
[2023-04-03] MEDS ORDERED: PANT40TA2 PO (14:14)
[2023-04-03 14:15] VITALS: BP 87/56
--- NOTE | 2023-04-03 14:15 | Discharge Inst-Simple/Standard ---
Discharge Inst-Standard Discharge Medications New, Converted or Re-Newed RX: Transmitted to Pharmacy Patient Instructions/Follow Up Plan of Care/Instructions/FU: 2 weeks Amanda Activity as Tolerated: Yes Discharge Diet: Regular Diet JOSÉ ROBERTSON DO Apr 03, 2023 14:15
[2023-04-03 14:20] VITALS: BP 83/53
[2023-04-03 14:25] VITALS: BP 83/53
[2023-04-03 14:27] VITALS: BP 94/53
--- NOTE | 2023-04-03 14:40 | Anesthesia-General Post-Op ---
MAC Patient Condition Mental Status/LOC: Same as Preop Cardiovascular: Satisfactory Nausea/Vomiting: Absent Respiratory: Satisfactory Pain: Controlled Complications: Absent Post Op Complications Complications None Follow Up Care/Instructions Patient Instructions None needed. Anesthesiology Discharge Order Discharge Order Patient is doing well, no complaints, stable vital signs, no apparent adverse anesthesia problems. No complications reported per nursing. LENA PORTILLO CHIPS SCREEN TENDER Apr 03, 2023 14:40
--- NOTE | 2023-04-03 22:33 | OPERATIVE REPORT ---
DATE OF SERVICE: 04/03/2023 PREOPERATIVE DIAGNOSES: Gastroesophageal reflux disease, screening colonoscopy. POSTOPERATIVE DIAGNOSES: Slight gastritis, normal colon. PROCEDURE: EGD with biopsy, colonoscopy. SURGEON: José Patel DO ANESTHESIA: Per PROCESS DEVELOPMENT MANAGER. ESTIMATED BLOOD LOSS: None. COMPLICATIONS: None. INDICATIONS: The patient is a 47-year-old female, needing screening colonoscopy and also has GERD symptoms. She understands risks and benefits of procedure and wishes to proceed. Consent was signed and in chart. DESCRIPTION OF PROCEDURE: The patient was taken to endoscopy suite, placed in left lateral recumbent position. Timeout was performed. Scope was inserted in the mouth, down the esophagus, stomach and duodenum without difficulty. No polyps, masses or ulcerations within the duodenum. Scope was slowly retracted back into the stomach where it was further insufflated. Slight gastritis appearance. Biopsy of the antrum was obtained. Scope was retroflexed noting no other pathology. Scope was returned to its normal position, slowly withdrawn until distal esophagus. Normal appearance, no polyps, masses or ulcerations. Scope was slowly retracted back until completely removed. Digital rectal exam was performed. No palpable polyps, masses or ulcerations. Scope was inserted in the rectum, advanced all the way to the cecum with minimal difficulty. Prep was adequate. Scope was slowly retracted back. No polyps, masses or ulcerations in the cecum, ascending, transverse, descending and sigmoid colon. Once in the rectum, scope was attempted to retroflex, was too narrow, so multiple insertions and retractions were made, noting no other pathology. Scope was slowly retracted back until completely removed. The patient tolerated the procedure well without complications, taken to recovery room in stable condition. RECOMMENDATIONS: The patient will follow up on biopsy, will be started on Protonix 40 mg daily. Will need repeat colonoscopy in 10 years unless family history of colon cancer, which then will be 5 years or personal history of polyps. Job ID: [id number] DocumentID: [id number] Dictated Date: 04/03/2023 14:17:55 Calender Wind Up Tender Date: 04/03/2023 22:32:00 Dictated By: JOSÉ PATEL DO
== END 2023-04-03 14:55 | disposition home or self-care (01) ==
LOC: ENDO 10:53
PROVIDERS: ATTEND Surgery
DX: Z12.11 Encounter for screening for malignant neoplasm of colon (principal); K29.50 Unspecified chronic gastritis without bleeding; K21.00 Gastro-esophageal reflux disease with esophagitis, without bleeding